=== PATIENT | male | born 1950 | race Caucasian/White ===

== ENCOUNTER 2018-03-18 07:37 | Inpatient (IN) ==
[2018-03-18] MEDS ORDERED: methylPREDNISolone SOD SUCC 125 MG/2 ML VIAL IV ONE (07:43)
[2018-03-18] MEDS ORDERED: IPRATROPIUM/ALBUTEROL 3 ML AMPUL.NEB NEB ONE (07:43)
[2018-03-18] MEDS ORDERED: methylPREDNISolone SOD SUCC 125 MG/2 ML VIAL ONE (07:44)
[2018-03-18] MEDS: IPRATROPIUM/ALBUTEROL 3 ML AMPUL.NEB NEB ONE ×2 (07:45→08:54)
[2018-03-18] MEDS ORDERED: LACTATED RINGERS 1,000 ML IV ONE (07:53)
[2018-03-18] MEDS ORDERED: ROCURONIUM 10 MG/ML ML IV ONE ×2 (08:03→15:59)
[2018-03-18] MEDS ORDERED: MIDAZOLAM 2 MG/2 ML VIAL IV ONE ×3 (08:03→09:14)
--- NOTE | 2018-03-18 08:07 | XRay Report ---
CLINICAL INFORMATION: Endotracheal tube placement - history of asthma COMPARISON: 03/31/2015 FINDINGS: Endotracheal tip is 4.5 cm above the ehsan. Heart size, mediastinum and pulmonary vessels are normal. Lung volumes are elevated compatible with known asthma. There are no infiltrates or effusions. IMPRESSION: Elevated lung volumes compatible with known asthma. No change from 2014. Endotracheal tip is 4.5 cm above the ehsan Interpreted and Authenticated by: Bertin Galvez 03/18/18
--- NOTE | 2018-03-18 08:15 | Emergency Department Note ---
General Adult HPI - General Chief complaint: Shortness of Breath/Dyspnea Stated complaint: Resp arrest Time Seen by Provider: 03/18/18 07:43 Mode of arrival: ambulatory - History of Present Illness HPI Narrative: This patient is an asthma patient who presented emergency room and near collapse. He required intubation immediately. His later said that he has been having increasing asthma symptoms over the last 2 weeks and has been mowing his grass and does have allergies which tend to trigger his asthma. No other symptoms according to the . - Related Data Previous Rx's Medication Instructions Recorded Albuterol Sulfate [Ventolin] 2 puff INH Q4-6HP PRN #1 inhaler 04/02/17 Allergies Allergy/AdvReac Type Severity Reaction Status Date / Time Penicillins AdvReac Verified 03/18/18 07:45 Review of Systems Limitations: ROS unobtainable due to patients medical condition Past Medical History - Past Medical History Medical history: Reports: asthma Surgical history ED: Reports: tonsillectomy - Social History smoking status: Never smoker Physical Exam Limitations: altered mental status General appearance: in distress Head: atraumatic, normocephalic Eye: Present: normal appearance ENT: normal exam Neck: Present: normal inspection Chest: Present: normal inspection Respiratory: Present: respiratory distress, other (decreased breath sounds throughout) Cardiovascular: Present: regular rate, normal rhythm, normal heart sounds Abdominal: Present: soft. Absent: distention, tenderness Neurological: Present: alert Psychiatric: Present: normal affect, normal mood Skin: Present: warm, dry, intact Course Vital Signs Pulse Rate 105 H 03/18/18 07:38 Respiratory Rate 0 L 03/18/18 07:38 Blood Pressure 178/81 03/18/18 07:38 Pulse Oximetry (%) 100 03/18/18 07:38 Temperature 94.7 F L 03/18/18 08:29 Pulse Rate 121 H 03/18/18 08:29 Respiratory Rate 20 03/18/18 08:29 Blood Pressure 111/83 03/18/18 08:28 Pulse Oximetry (%) 100 03/18/18 08:29 Procedures - Intubation Time out performed: No sedative: none Laryngoscope: fiber optic video scope ET Tube Size: 8 ET Tube Uncuffed: No Tube Placement Confirmation: visualized tube passing through cords, confirmation by capnometry Patient Tolerated Procedure: well, no complications Intubation Complications: none Medical Decision Making - MDM Narrative Medical decision making narrative: This patient has remained stable after intubation. His lactic acid was quite high so we did blood cultures and started antibiotics. He will be admitted to the ICU by Dr. Steele. - Lab Data Lab results reviewed: Yes I reviewed the patient's lab results. Result diagrams: 03/18/18 07:50 03/18/18 07:50 Lab Results 03/18/18 03/18/18 03/18/18 Range/Units 07:50 07:50 07:50 WBC 9.9 (4.5-11.0) K/mcL RBC 5.25 (4.50-5.90) M/mcL Hgb 15.5 (13.5-16.5) g/dL Hct 48.4 (41.0-55.0) % MCV 92.3 (80.0-100.0) fL MCH 29.6 (26.0-34.0) pg MCHC 32.1 (31.0-36.0) g/dL RDW 13.0 (11.5-14.5) % Plt Count 292 (140-440) K/mcL MPV 8.3 (7.4-10.4) fL Gran % 40.9 (38.0-78.0) % Lymph % (Auto) 41.9 (15.5-49.0) % Drew % (Auto) 7.2 (1.0-12.0) % Eos % (Auto) 9.2 H (0.0-7.0) % Baso % (Auto) 0.8 (0.0-2.0) % Gran # 4.1 (1.8-8.0) K/mcL Lymph # (Auto) 4.2 (1.5-4.8) K/mcL Drew # (Auto) 0.7 (0.1-0.9) K/mcL Eos # (Auto) 0.9 H (0.0-0.7) K/mcL Baso # (Auto) 0.1 (0.0-0.3) K/mcL VBG Lactic Acid (0.5-2.2) mmol/L Sodium 144 (133-145) mmol/L Potassium 4.7 (3.3-5.1) mmol/L Chloride 103 (96-108) mmol/L Carbon Dioxide 26 (22-30) mmol/L Anion Gap 15.0 (8-16) BUN 13 (8-23) mg/dl Creatinine 0.9 (0.7-1.2) mg/dl GFR Calculation 89 Glucose 124 H (70-105) mg/dL Calcium 9.3 (8.6-10.4) mg/dl Total Bilirubin 0.6 (0.0-1.0) mg/dL AST 21 (0-37) U/l ALT 16 (0-40) U/l Alkaline Phosphatase 73 (39-117) U/L Troponin T < 0.01 (0-0.03) ng/ml NT-Pro-B Natriuret Pep < 50.0 (0-125) pg/ml Total Protein 7.6 (5.9-8.4) gm/dL Albumin 4.6 (3.2-5.2) gm/dL Globulin 3.0 (2.2-3.7) gm/dL Albumin/Globulin Ratio 1.5 (1.0-2.3) 03/18/18 Range/Units 07:52 WBC (4.5-11.0) K/mcL RBC (4.50-5.90) M/mcL Hgb (13.5-16.5) g/dL Hct (41.0-55.0) % MCV (80.0-100.0) fL MCH (26.0-34.0) pg MCHC (31.0-36.0) g/dL RDW (11.5-14.5) % Plt Count (140-440) K/mcL MPV (7.4-10.4) fL Gran % (38.0-78.0) % Lymph % (Auto) (15.5-49.0) % Drew % (Auto) (1.0-12.0) % Eos % (Auto) (0.0-7.0) % Baso % (Auto) (0.0-2.0) % Gran # (1.8-8.0) K/mcL Lymph # (Auto) (1.5-4.8) K/mcL Drew # (Auto) (0.1-0.9) K/mcL Eos # (Auto) (0.0-0.7) K/mcL Baso # (Auto) (0.0-0.3) K/mcL VBG Lactic Acid 7.7 H* (0.5-2.2) mmol/L Sodium (133-145) mmol/L Potassium (3.3-5.1) mmol/L Chloride (96-108) mmol/L Carbon Dioxide (22-30) mmol/L Anion Gap (8-16) BUN (8-23) mg/dl Creatinine (0.7-1.2) mg/dl GFR Calculation Glucose (70-105) mg/dL Calcium (8.6-10.4) mg/dl Total Bilirubin (0.0-1.0) mg/dL AST (0-37) U/l ALT (0-40) U/l Alkaline Phosphatase (39-117) U/L Troponin T (0-0.03) ng/ml NT-Pro-B Natriuret Pep (0-125) pg/ml Total Protein (5.9-8.4) gm/dL Albumin (3.2-5.2) gm/dL Globulin (2.2-3.7) gm/dL Albumin/Globulin Ratio (1.0-2.3) - Radiology Data Radiology results reviewed: Yes I reviewed the patient's radiology results. Critical Care Time Critical Care Time: Yes Total Critical Care Time: 45 Disposition Pt seen by MANAGER LOCAL/PA only: No Clinical Impression: Asthma with exacerbation, Acute respiratory failure Disposition: Xfer As Inpt ([facility]) Condition: Critical Time of Disposition: 09:00
[2018-03-18 08:29] LABS: Basophils # (Auto) 0.1 K/mcL (0.0-0.3); Basophils % (Auto) 0.8 % (0.0-2.0); Eosinophils # (Auto) 0.9 K/mcL (0.0-0.7); Eosinophils % (Auto) 9.2 % (0.0-7.0); Granulocytes % (Auto) 40.9 % (38.0-78.0); Lymphocytes # (Auto) 4.2 K/mcL (1.5-4.8); Lymphocytes % (Auto) 41.9 % (15.5-49.0); Mean Cell Volume 92.3 fL (80.0-100.0); Mean Corpuscular HGB Conc 32.1 g/dL (31.0-36.0); Mean Corpuscular Hemoglobin 29.6 pg (26.0-34.0); Monocytes # (Auto) 0.7 K/mcL (0.1-0.9); Monocytes % (Auto) 7.2 % (1.0-12.0); Platelet Count 292 K/mcL (140-440); RBC 5.25 M/mcL (4.50-5.90)
[2018-03-18] MEDS ORDERED: PROPOFOL 1,000 MG in PREMIX 1 BAG IV SCH (08:45)
[2018-03-18 08:52] LABS: ALT/SGPT 16 U/l (0-40); Albumin 4.6 gm/dL (3.2-5.2); Albumin/Globulin Ratio 1.5 (1.0-2.3); Alkaline Phosphatase 73 U/L (39-117); Blood Urea Nitrogen 13 mg/dl (8-23); proBNP < 50.0 pg/ml (0-125)
[2018-03-18] MEDS ORDERED: VANCOMYCIN 1,000 MG in 0.9 % SODIUM CHLORIDE 250 ML IV ONE (08:59)
[2018-03-18] MEDS ORDERED: LEVOFLOXACIN 750 MG/150 ML BAG IV ONE (08:59)
[2018-03-18] MEDS ORDERED: POTASSIUM CHLORIDE 20 MEQ PACKET PO PRN (10:03)
[2018-03-18] MEDS ORDERED: traZODone HCL 50 MG TABLET PO PRN (10:03)
[2018-03-18] MEDS ORDERED: ONDANSETRON 4 MG/2 ML VIAL IV PRN (10:03)
[2018-03-18] MEDS ORDERED: HEPARIN/NS 500 ML IV SCH (10:03)
[2018-03-18] MEDS ORDERED: ACETAMINOPHEN 1,000 MG/100 ML BOTTLE IV PRN (10:03)
[2018-03-18] MEDS ORDERED: guaiFENesin/CODEINE 10 ML UDC PO PRN (10:03)
[2018-03-18] MEDS ORDERED: MAGNESIUM SULFATE 2 GM/50 ML BAG IV PRN (10:03)
[2018-03-18] MEDS ORDERED: POTASSIUM CHLORIDE 40 MEQ in DEXTROSE 5% IN WATER 500 ML IV PRN (10:03)
[2018-03-18] MEDS ORDERED: cefTRIAXone 2 GM in DEXTROSE 5% IN WATER 50 ML IV SCH (10:03)
[2018-03-18] MEDS ORDERED: ACETAMINOPHEN 325 MG TABLET PO PRN (10:03)
--- NOTE | 2018-03-18 10:13 | Internal Med History&Physical ---
Medical - H&P: [facility] Patient information: Note initiated : 03/18/18 at 10:09 am Service Date, if different from initiated Date: [] Patient: Eleazar Purvis a 67 y/o M admitted on 03/18/18 for Resp arrest. Chief Complaint: [] Chief complaint: shortness of breath History of present illness: Mr. Purvis is a 67 year old M with known history of asthma who presents to the ER in severe respiratory distress. Patient has had symptoms that evolved over the last 2 weeks with progressive shortness of breath that has not improved despite using rescue inhalers. Patient also has been mowing lawn 2 days ago that worsened his shortness of breath. This morning he could barely breathe and subsequently came to the ER. During initial evaluation patient became bradycardic with respiratory arrest. he was promptly started on mechanical ventilation. Initial blood gas 7.02/79 CO2. Hospitalist service was consulted after patient was stabilized. Initial venous lactate was 7.2. Patient was received in ICU on mechanical ventilation. ICU sedation on propofol , fentanyl is being admitted. vent setting before meals tidal volume 450/16/ 30FiO2/PEEP 5 he was obtained from review of medical records and ER physician. On discussions with she is able to endorse history as above. She denies sick contacts. She denies recent exposure to smoke or active smoking. Patient and his will follow-up with her primary care physician and has been trying homeopathic medicine for seasonal allergy disorder. Patient has had intermittent episodes of asthma in the past requiring ER visit and was never hospitalized. So far he has been well controlled on his rescue inhalers. Patient did not have any fever diarrhea and weight loss in the last few weeks. Review of systems 10 point review systems was discussed with as patient is on mechanical ventilation and is negative except for ones discussed above Medical - H&P: PMH Medical history: seasonal allergy disorder Reactive airway disease Pertinent family history: none available Social history: and lives with his in [place] No history of smoking alcoholism Functional capacity: independent ambulation Smoking status: Never smoker Have you smoked in the last 12 months: No Drug use: none Alcohol use: none Medical - H&P: Meds Home Medications Medication Instructions Recorded Confirmed Type Albuterol Sulfate [Ventolin] 2 puff INH Q4-6HP PRN #1 inhaler 04/02/17 03/18/18 Rx Allergies Allergy/AdvReac Type Severity Reaction Status Date / Time Penicillins AdvReac Verified 03/18/18 07:45 Medical - H&P: Exam - Constitutional Vitals: Temp Pulse Resp BP Pulse Ox 95.4 F L 91 H 18 103/60 100 03/18/18 09:55 03/18/18 09:55 03/18/18 09:55 03/18/18 09:55 03/18/18 09:55 General appearance: average body habitus Exam: On mechanical ventilation Sedated on propofol Pupils symmetric ET tube in place oral cavity dry No ear or nose discharge Minimal rhonchi s1 and S2 tachycardia abdomen soft lower extremity no cyanosis clubbing edemaOr joint swelling skin no suspicious lesion Psych on mechanical ventilation neuro: Not performed Medical - H&P: Reslt - Labs CBC & Chem 7: 03/18/18 07:50 03/18/18 07:50 Labs: Short CBC 03/18/18 Range/Units 07:50 WBC 9.9 (4.5-11.0) K/mcL Hgb 15.5 (13.5-16.5) g/dL Hct 48.4 (41.0-55.0) % Plt Count 292 (140-440) K/mcL BMP 03/18/18 07:50 Sodium 144 Potassium 4.7 Chloride 103 Carbon Dioxide 26 BUN 13 Creatinine 0.9 Glucose 124 H Calcium 9.3 Cardiac Enzymes 03/18/18 Range/Units 07:50 Troponin T < 0.01 (0-0.03) ng/ml Liver Function 03/18/18 Range/Units 07:50 Total Bilirubin 0.6 (0.0-1.0) mg/dL AST 21 (0-37) U/l ALT 16 (0-40) U/l Alkaline Phosphatase 73 (39-117) U/L Albumin 4.6 (3.2-5.2) gm/dL Medical - H&P: A/P (1) Status asthmaticus, allergic Current visit: Yes Status: Acute * Status asthmaticus, ABG 7.. On mechanical ventilation. High-dose steroids/continues bronchodilators/racemic epinephrine/magnesium as needed * Hypercapnic respiratory failure-on mechanical ventilation. * Mechanical ventilation-managed per protocol - continue sedation on FENTANYL/ propofol. * Prophylaxis heparin * full code plan * mechanical ventilation per protocol * Status asthmaticus management per protocol Critical care time spent over 35 minutes on intubation blood gas imaging, Vent management and drips titration.
[2018-03-18] MEDS ORDERED: 0.9 % SODIUM CHLORIDE 1,000 ML IV ONE ×2 (10:30→11:30)
--- NOTE | 2018-03-18 10:36 | XRay Report ---
CLINICAL INFORMATION: NG placement COMPARISON: None. FINDINGS: NG tip overlies the gastric body. Only upper one half half of the abdomen is included on film. Stool gas pattern is grossly normal. No free air. IMPRESSION: NG tube in satisfactory position. No acute disease evident Interpreted and Authenticated by: Bertin Galvez 03/18/18
[2018-03-18] MEDS: PROPOFOL 1,000 MG in PREMIX 1 BAG IV SCH ×2 (10:50→17:33)
[2018-03-18] MEDS: IPRATROPIUM/ALBUTEROL 3 ML AMPUL.NEB NEB SCH ×4 (11:14→23:08)
[2018-03-18] MEDS ORDERED: NOREPINEPHRINE BITARTRATE 8 MG in 0.9 % SODIUM CHLORIDE 242 ML IV SCH (11:15)
[2018-03-18] MEDS: NOREPINEPHRINE BITARTRATE 16 MG in 0.9 % SODIUM CHLORIDE 234 ML IV SCH (11:30)
[2018-03-18] MEDS: 0.9 % SODIUM CHLORIDE 250 ML IV SCH ×2 (11:51→23:44)
[2018-03-18] MEDS: 0.9 % SODIUM CHLORIDE 1,000 ML IV SCH (11:51)
[2018-03-18] MEDS: fentaNYL 2,500 MCG in 0.9 % SODIUM CHLORIDE 200 ML IV SCH (12:00)
[2018-03-18] MEDS: methylPREDNISolone SOD SUCC 125 MG/2 ML VIAL IV SCH ×3 (12:28→23:46)
[2018-03-18] MEDS: 0.9 % SODIUM CHLORIDE 10 ML SYRINGE IV SCH ×2 (14:18→23:47)
[2018-03-18] MEDS ORDERED: MIDAZOLAM 5 MG/5 ML VIAL IV ONE (15:59)
[2018-03-18] MEDS: BUDESONIDE 0.5 MG/2 ML AMPUL.NEB NEB SCH (20:51)
[2018-03-18] MEDS ORDERED: SENNOSIDES/DOCUSATE SODIUM 1 TAB TABLET PO SCH (21:00)
[2018-03-18] MEDS: CHLORHEXIDINE GLUCONATE 1 ML ORAL.SOL SWABMOUTH SCH (21:04)
[2018-03-18] MEDS: HEPARIN 5,000 UNIT/ML VIAL SQ SCH (21:04)
[2018-03-18] MEDS: DOCUSATE SODIUM 100 MG CAPSULE PO SCH (21:05)
[2018-03-19] MEDS: IPRATROPIUM/ALBUTEROL 3 ML AMPUL.NEB NEB SCH ×6 (02:46→23:02)
[2018-03-19] MEDS: PROPOFOL 1,000 MG in PREMIX 1 BAG IV SCH ×2 (03:31→11:05)
[2018-03-19] MEDS: methylPREDNISolone SOD SUCC 125 MG/2 ML VIAL IV SCH ×3 (05:36→17:38)
[2018-03-19] MEDS: 0.9 % SODIUM CHLORIDE 10 ML SYRINGE IV SCH ×3 (05:36→22:00)
[2018-03-19 06:19] LABS: Mean Cell Volume 92.1 fL (80.0-100.0); Mean Corpuscular Hemoglobin 30.4 pg (26.0-34.0); Platelet Count 254 K/mcL (140-440); RBC 4.32 M/mcL (4.50-5.90)
--- NOTE | 2018-03-19 06:35 | XRay Report ---
CLINICAL INFORMATION: Dyspnea on mechanical ventilation COMPARISON: 03/23/2018 FINDINGS: Endotracheal tip is now 3.5 cm above the ehsan. NG tube in stable satisfactory position. Heart size, mediastinum and pulmonary vessels are normal. Lungs are clear. Lung volumes are mildly elevated. No effusions IMPRESSION: Elevated lung volumes suggestive of asthma or chronic bronchitis. No infiltrate. Endotracheal tube in satisfactory position. Interpreted and Authenticated by: Bertin Galvez 03/19/18
[2018-03-19 07:28] LABS: ALT/SGPT 15 U/l (0-40); Albumin 3.7 gm/dL (3.2-5.2); Albumin/Globulin Ratio 1.6 (1.0-2.3); Alkaline Phosphatase 60 U/L (39-117); Bilirubin,Direct < 0.2 mg/dL (0.0-0.3); Blood Urea Nitrogen 13 mg/dl (8-23); Gamma Glutamyl Transpeptidase 16 U/L (8-61); Uric Acid 3.8 mg/dL (2.5-8.0)
[2018-03-19] MEDS: BUDESONIDE 0.5 MG/2 ML AMPUL.NEB NEB SCH ×2 (07:44→19:09)
[2018-03-19] MEDS: 0.9 % SODIUM CHLORIDE 1,000 ML IV SCH (07:46)
--- NOTE | 2018-03-19 08:17 | Internal Med Progress Note ---
Medical - PN: Subj Patient information: Note initiated : 03/19/18 at 8:15 am Service Date, if different from initiated Date: [] Patient: Eleazar Purvis a 67 y/o M admitted on 03/18/18 for Resp arrest. Chief Complaint: [] Interval history: Mr. Purvis is a 67 year old M with known history of asthma who presents to the ER in severe respiratory distress. Patient has had symptoms that evolved over the last 2 weeks with progressive shortness of breath that has not improved despite using rescue inhalers. Patient also has been mowing lawn 2 days ago that worsened his shortness of breath. This morning he could barely breathe and subsequently came to the ER. During initial evaluation patient became bradycardic with respiratory arrest. he was promptly started on mechanical ventilation. Initial blood gas 7.02/79 CO2. Hospitalist service was consulted after patient was stabilized. Initial venous lactate was 7.2. Patient was received in ICU on mechanical ventilation. ICU sedation on propofol , fentanyl is being admitted. vent setting before meals tidal volume 450/16/ 30FiO2/PEEP 5 he was obtained from review of medical records and ER physician. On discussions with she is able to endorse history as above. She denies sick contacts. She denies recent exposure to smoke or active smoking. Patient and his will follow-up with her primary care physician and has been trying homeopathic medicine for seasonal allergy disorder. Patient has had intermittent episodes of asthma in the past requiring ER visit and was never hospitalized. So far he has been well controlled on his rescue inhalers. 03/19-patient doing remarkably better. ABG 7.4/36 PCO2. hypovolemic shock resolved, off vasopressors with map at goal. rapid shallow breathing index favorable. at bedside. Patient ready for extubation. vasopressors/ propofol and fentanyl discontinued. Patient subsequently extubated to high flow oxygen. No untoward events during extubation procedure. no overnight fever or chills. On high-dose steroids. Continue monitoring and lower steroid dose. Continue breathing treatments and physical therapy. Anticipate discharge in 24 hours oral steroids and bronchodilators. - Constitutional Vitals: Vital Signs Temp Pulse Resp BP Pulse Ox 98.4 F 73 21 128/62 100 03/19/18 08:01 03/19/18 08:01 03/19/18 08:01 03/19/18 08:01 03/19/18 08:01 Period Temp Pulse Resp BP Sys/Myles Pulse Ox Last 24 Hr 94.4 F-99.7 F 48-135 9-24 59-158/39-98 92-100 Intake and Output 03/18/18 03/19/18 03/19/18 21:59 05:59 13:59 Intake Total 2105 / 2105 297 / 297 1195 / 1195 Output Total 535 / 535 397 / 397 140 / 140 Balance 1570 / 1570 -100 / -100 1055 / 1055 Weight 129 lb Intake & Output: Intake & Output 03/18/18 03/19/18 03/19/18 21:59 05:59 13:59 Intake Total 2105 / 2105 297 / 297 1195 / 1195 Output Total 535 / 535 397 / 397 140 / 140 Balance 1570 / 1570 -100 / -100 1055 / 1055 Weight 129 lb Intake: IV 2105 / 2105 297 / 297 1195 / 1195 Sodium Chloride 0.9% 1,000 ml @ 996 / 996 50 mls/hr IV .Q20H SHARONDA Rx#: [id number] Sodium Chloride 0.9% 250 ml @ 237 / 237 20 mls/hr IV .[id number] SHARONDA Rx#: [id number] Levophed 16 mg In Sodium 84 / 84 Chloride 0.9% 234 ml @ 10 MCG/ MIN 9.37 mls/hr IV Q24H SHARONDA Rx# :[id number] Diprivan 1,000 mg In Premix 1 83 / 83 60 / 60 45 / 45 Bag @ 5 MCG/KG/MIN 2.04 mls/hr IV .Q24H SHARONDA Rx#:[id number] fentaNYL 2,500 MCG In Sodium 22 / 22 70 / 70 Chloride 0.9% 200 ml @ 25 MCG/ HR 2.5 mls/hr IV Q24H SHARONDA Rx#: [id number] Output: Gastric Drainage 25 / 25 Right Nare NG/OG 25 / 25 Urine Catheter Amount 535 / 535 372 / 372 140 / 140 General appearance: no acute distress Exam: alert oriented nonlabored breathing Nondistended abdomen No telemetry events Good urine output Medical - PN: Obj Da - Labs CBC & Chem 7: 03/19/18 04:00 03/19/18 04:00 Labs: Abnormal Lab Results 03/19/18 03/19/18 03/18/18 04:00 04:00 07:52 RBC 4.32 L Hgb 13.1 L Hct 39.8 L Eos % (Auto) Eos # (Auto) VBG Lactic Acid 7.7 H* Carbon Dioxide 19 L Creatinine 0.6 L Glucose 138 H Calcium 8.0 L 03/18/18 03/18/18 07:50 07:50 RBC Hgb Hct Eos % (Auto) 9.2 H Eos # (Auto) 0.9 H VBG Lactic Acid Carbon Dioxide Creatinine Glucose 124 H Calcium Meds: Medications Acetaminophen (Tylenol) 650 mg PO Q4-6HP PRN PRN Reason: PAIN/FEVER > 101 Albuterol/Ipratropium (Duoneb) 3 ml NEB Q4HRT [facility] Last Admin: 03/19/18 07:44 Dose: 3 ml Budesonide (Pulmicort) 0.5 mg NEB Q12 [facility] Last Admin: 03/19/18 07:44 Dose: 0.5 mg Chlorhexidine Gluconate (Peridex) 15 ml SWABMOUTH BID [facility] Last Admin: 03/18/18 21:04 Dose: 15 ml Docusate Sodium (Colace) 100 mg PO BID [facility] Last Admin: 03/18/18 21:05 Dose: Not Given Guaifenesin/Codeine Phosphate (Robitussin Ac) 10 ml PO Q4HP PRN PRN Reason: Cough Heparin Sodium (Porcine) (Heparin) 5,000 unit SQ Q12 [facility] Last Admin: 03/18/18 21:04 Dose: 5,000 unit Fentanyl 2,500 mcg/ Sodium (Chloride) 250 mls @ 2.5 mls/hr IV Q24H SHARONDA; 25 MCG/ HR PRN Reason: Protocol Last Titration: 03/19/18 07:20 Dose: 0 mcg/hr, 0 mls/hr Heparin Sodium/Sodium Chloride (Heparin/Ns) 500 mls @ 0 mls/hr IV .Q0M SHARONDA; KVO PRN Reason: Protocol Potassium Chloride 40 meq/ (Dextrose) 520 mls @ 130 mls/hr IV UD PRN PRN Reason: K+ = or < 3.5 Magnesium Sulfate (Magnesium Sulfate) 2 gm in 50 mls @ 50 mls/hr IV UD PRN PRN Reason: MG = or < 1.7 Sodium Chloride (Sodium Chloride 0.9%) 1,000 mls @ 50 mls/hr IV .Q20H SHARONDA Stop: 03/20/18 22:02 Last Admin: 03/19/18 07:46 Dose: 50 mls/hr Acetaminophen (Ofirmev) 1,000 mg in 100 mls @ 200 mls/hr IV Q6HP PRN PRN Reason: PAIN/FEVER > 101 Propofol 1,000 mg/ Premix 100 mls @ 2.04 mls/hr IV .Q24H SHARONDA; 5 MCG/KG/MIN PRN Reason: Protocol Last Titration: 03/19/18 07:20 Dose: 0 mcg/kg/min, 0 mls/hr Sodium Chloride (Sodium Chloride 0.9%) 250 mls @ 20 mls/hr IV .[id number] [facility] Last Admin: 03/18/18 23:44 Dose: 15 mls/hr Norepinephrine Bitartrate 16 (mg/ Sodium Chloride) 250 mls @ 9.37 mls/hr IV Q24H SHARONDA; 10 MCG/MIN PRN Reason: Protocol Last Titration: 03/19/18 07:20 Dose: 0 mcg/min, 0 mls/hr Iron Carb/Multivit/Circuit Court Clerk/Folic Acid (Multivitamin W/Minerals) 1 tab PO DAILY [facility] Methylprednisolone Sodium Succinate (Solu-Medrol) 125 mg IV Q6 [facility] Last Admin: 03/19/18 05:36 Dose: 125 mg Ondansetron HCl (Zofran) 4 mg IV Q4-6HP PRN PRN Reason: Nausea And Vomiting Potassium Chloride (Klor-Con) 40 meq PO DAILYP PRN PRN Reason: K+ < 3.5 Senna/Docusate Sodium (Senna Plus Tablet) 1 tab PO HS [facility] Last Admin: 03/18/18 21:05 Dose: Not Given Sodium Chloride (Saline Flush) 10 ml IV Q8 [facility] Last Admin: 03/19/18 05:36 Dose: Not Given Trazodone HCl (Desyrel) 50 mg PO HSP PRN PRN Reason: Insomnia Medical - PN: A/P - Time Spent With Patient Total time spent is greater than 50% in coordination of care (as documented) at patient's floor/unit and/or counseling patient: 25 - 35 minutes (critical care time) (1) Status asthmaticus, allergic Status: Acute Assessment and plan: * Status asthmaticus, ABG 7.02/79. ABG improved to 7.4/36. Extubation parameters favorable. continue IV steroid and transition to oral steroids on discharge. * Hypercapnic respiratory failure- clinically resolved. Blood gases /pH normalized * hypovolemic shock-clinically resolved. Off pressors. Status post ferrous crystalloids bolus * Mechanical ventilation-extubated today * Prophylaxis heparin * full code plan * continue IV steroids and bronchodilators * Extubate * discontinue propofol fentanyl and pressors Current Visit: Yes Medical - PN: Qual - VTE Deep Vein Thrombosis/Pulmonary Embolism Present on Admission: No
[2018-03-19 08:18] LABS: Band Neutrophils % 2 % (0-10); Lymphocytes % 13 % (15-49); Platelet Estimate NORMAL (NORMAL); RBC Morphology NORMAL (NORMAL); Segmented Neutrophils % 85 % (38-78)
[2018-03-19] MEDS ORDERED: MULTIVIT,THER IRON,CA,FA & MIN 1 TABLET PO SCH (09:00)
[2018-03-19] MEDS: HEPARIN 5,000 UNIT/ML VIAL SQ SCH ×2 (10:05→21:00)
[2018-03-19] MEDS: DOCUSATE SODIUM 100 MG CAPSULE PO SCH ×2 (10:06→21:00)
[2018-03-19] MEDS: CHLORHEXIDINE GLUCONATE 1 ML ORAL.SOL SWABMOUTH SCH (10:06)
[2018-03-19] MEDS: fentaNYL 2,500 MCG in 0.9 % SODIUM CHLORIDE 200 ML IV SCH (10:07)
[2018-03-19] MEDS: NOREPINEPHRINE BITARTRATE 16 MG in 0.9 % SODIUM CHLORIDE 234 ML IV SCH (12:26)
[2018-03-19] MEDS ORDERED: NOREPINEPHRINE BITARTRATE 16 MG in 0.9 % SODIUM CHLORIDE 234 ML IV SCH ×2 (15:45→16:14)
[2018-03-19] MEDS ORDERED: ACETAMINOPHEN 900 MG/90 ML BOTTLE IV PRN (16:14)
[2018-03-19] MEDS ORDERED: POTASSIUM CHLORIDE 40 MEQ in DEXTROSE 5% IN WATER 500 ML IV PRN (16:14)
[2018-03-19] MEDS ORDERED: ACETAMINOPHEN 325 MG TABLET PO PRN (16:14)
[2018-03-19] MEDS ORDERED: POTASSIUM CHLORIDE 20 MEQ PACKET PO PRN (16:14)
[2018-03-19] MEDS ORDERED: HEPARIN/NS 500 ML IV SCH (16:14)
[2018-03-19] MEDS ORDERED: MAGNESIUM SULFATE 2 GM/50 ML BAG IV PRN (16:14)
[2018-03-19] MEDS ORDERED: traZODone HCL 50 MG TABLET PO PRN (16:14)
[2018-03-19] MEDS ORDERED: ONDANSETRON 4 MG/2 ML VIAL IV PRN (16:14)
[2018-03-19] MEDS ORDERED: guaiFENesin/CODEINE 10 ML UDC PO PRN (16:14)
[2018-03-19] MEDS ORDERED: methylPREDNISolone SOD SUCC 125 MG/2 ML VIAL IV SCH (18:00)
[2018-03-19] MEDS ORDERED: SENNOSIDES/DOCUSATE SODIUM 1 TAB TABLET PO SCH (21:00)
[2018-03-20] MEDS: methylPREDNISolone SOD SUCC 125 MG/2 ML VIAL IV SCH ×3 (03:05→11:11)
[2018-03-20] MEDS: 0.9 % SODIUM CHLORIDE 1,000 ML IV SCH ×2 (03:09→11:11)
[2018-03-20] MEDS: IPRATROPIUM/ALBUTEROL 3 ML AMPUL.NEB NEB SCH ×3 (03:36→11:05)
[2018-03-20 05:22] LABS: Platelet Count 190 K/mcL (140-440); RBC 3.66 M/mcL (4.50-5.90); Red Cell Distribution Width 13.2 % (11.5-14.5)
[2018-03-20] MEDS: 0.9 % SODIUM CHLORIDE 10 ML SYRINGE IV SCH (05:27)
[2018-03-20 05:46] LABS: ALT/SGPT 19 U/l (0-40); Albumin 3.5 gm/dL (3.2-5.2); Albumin/Globulin Ratio 1.8 (1.0-2.3); Alkaline Phosphatase 48 U/L (39-117); Bilirubin,Direct < 0.2 mg/dL (0.0-0.3); Blood Urea Nitrogen 20 mg/dl (8-23); Gamma Glutamyl Transpeptidase 23 U/L (8-61); Uric Acid 3.8 mg/dL (2.5-8.0)
[2018-03-20 06:34] LABS: Lymphocytes % 13 % (15-49); Monocytes % (Manual) 8 % (1-12); Platelet Estimate NORMAL (NORMAL); RBC Morphology NORMAL (NORMAL); Segmented Neutrophils % 79 % (38-78)
[2018-03-20] MEDS: HEPARIN 5,000 UNIT/ML VIAL SQ SCH (08:45)
[2018-03-20] MEDS: DOCUSATE SODIUM 100 MG CAPSULE PO SCH (08:45)
[2018-03-20] MEDS: BUDESONIDE 0.5 MG/2 ML AMPUL.NEB NEB SCH (08:46)
[2018-03-20] MEDS ORDERED: MULTIVIT,THER IRON,CA,FA & MIN 1 TABLET PO SCH (09:00)
--- NOTE | 2018-03-20 09:06 | XRay Report ---
CLINICAL INFORMATION: Hypoxia patient now extubated COMPARISON: 03/19/2018 FINDINGS: Endotracheal tube is now out. There is mild concentric narrowing of the subglottic trachea could indicate stenosis or edema following tube removal. Heart size, mediastinum and pulmonary vessels are normal. Lungs are clear. No effusions. IMPRESSION: No acute cardiopulmonary disease. Mild concentric narrowing of the proximal trachea Interpreted and Authenticated by: Bertin Galvez 03/20/18
--- NOTE | 2018-03-20 10:20 | Discharge Summary ---
Medical - DS: Prov Patient information: Note initiated : 03/20/18 at 10:15 am Service Date, if different from initiated Date: [] Patient: Eleazar Purvis 67 y/o M admitted on 03/18/18 for Resp Arrest/Asthma w/ Exacerbation, Resp Failure. Chief Complaint: [] Date of admission: 03/18/18 09:43 Discharge date: 03/20/18 Admitting clinician: Kenny Ball Consults: 03/18/18 08:11 Consult to Physician [CONS] Stat Comment: Consulting Provider: Kenny Ball Reason For Exam: Physician to Consult Discharging clinician: Richard Garcia Medical - DS: Meds - Discharge Medications Prescriptions: predniSONE [Prednisone] 40 mg PO QAC #8 tab Active and Home Medications: Home Medications Albuterol Sulfate [Ventolin] 2 puff INH Q4-6HP PRN #1 inhaler 04/02/17 [Rx Confirmed 03/18/18 Last Taken 03/18/18 06:00] Medical - DS: Hosp Hospital course: Mr. Purvis is a 67 year old M with known history of asthma who presented to the ER in severe respiratory distress. Patient has had symptoms that evolved over the last 2 weeks with progressive shortness of breath that has not improved despite using rescue inhalers. Patient also has been mowing lawn 2 days ago that worsened his shortness of breath. This morning he could barely breathe and subsequently came to the ER. During initial evaluation patient became bradycardic with respiratory arrest. he was promptly started on mechanical ventilation. Initial blood gas 7.02/79 CO2. Hospitalist service was consulted after patient was stabilized. Initial venous lactate was 7.2. Patient was admitted to ICU on mechanical ventilation. He was treated with steroids and nebulizers, he responded to treatment well and was extubated on the (next day). He was monitored for 24 hrs after extubation during which time he did well, he had no wheezing, and was able to ambulate well. He is tolerating po diet well and able to speak full sentences. The patient will be discharged home with po steroids and continued as needed inhalters. He does not have a PCP . He is willing to follow up with pulmonary at discharge. Will refer him to our pulmonary clinic for management of his asthma. . Discharge diagnosis: Status Asthmaticus - Time Spent with Patient Total time spent providing and/or coordinating discharge services: Less than 30 minutes Medical - DS: Exam - Constitutional Vitals: Vital Signs Temp Pulse Pulse Resp BP Pulse Ox 03/20/18 07:52 98.5 F 16 119/61 96 03/20/18 06:58 69 12 03/20/18 03:41 98.9 F 16 101/46 03/20/18 00:01 98.5 F 16 105/55 98 03/19/18 23:57 97/43 03/19/18 23:55 101/44 03/19/18 23:54 62 95/40 98 03/19/18 23:03 51 L 12 03/19/18 20:00 99.2 F H 16 102/50 100 03/19/18 19:17 58 L 99 03/19/18 19:10 56 L 8 L 03/19/18 16:06 99 F 18 93/50 99 03/19/18 15:13 62 8 L 03/19/18 15:00 68 18 92/55 93 03/19/18 14:18 58 L 17 105/56 97 03/19/18 13:00 62 13 106/48 99 03/19/18 12:48 18 99 03/19/18 12:38 98.8 F 67 15 94/50 99 03/19/18 12:30 59 L 13 97 03/19/18 11:38 66 14 03/19/18 10:50 50 L 18 99/54 100 Intake and Output 03/19/18 03/20/18 03/20/18 21:59 05:59 13:59 Intake Total 680 / 680 1869 / 1869 Output Total 465 / 465 300 / 300 Balance 215 / 215 1569 / 1569 Intake: IV 969 / 969 Oral 680 / 680 900 / 900 Output: Gastric Drainage 240 / 240 Right Nare NG/OG 240 / 240 Void Amount 225 / 225 300 / 300 Other: Meal Dinner Percent of Meal Consumed 100% # Voids 1 Weight 133 lb 8 oz Additional comments: Constitutional; Afebrile, cooperative, alert, not in distress. Eyes- No icterus, , No periorbital swelling Ears- Ext ear normal, hearing normal to conversation. Neck- Midline trachea, supple Respiratory system: Air Entry equal on both sides, No crackles or wheezing, no rhonchi. CVS- Rate rhythm regular, S1,S2 heard, no gallop, no rub. Abdomen- Soft nontender abdomen, no organomegaly, no tenderness, no guarding or rigidity, [employer]ATIONS [employer]IST- AOOx3, moving all extremities, no gross focal deficit noted. Medical - DS: Data Labs on day of discharge: Labs from last 24 hours 03/20/18 03/20/18 03:38 03:38 WBC 8.9 RBC 3.66 L Hgb 11.0 L Hct 33.3 L MCV 91.0 MCH 30.0 MCHC 33.0 RDW 13.2 Plt Count 190 MPV 8.1 Total Counted 100 Seg Neutrophils % 79 H Band Neutrophils % Not Reportable Lymphocytes % 13 L Monocytes % (Manual) 8 Platelet Estimate Normal RBC Morphology Normal Sodium 135 Potassium 4.6 Chloride 102 Carbon Dioxide 24 Anion Gap 9.0 BUN 20 Creatinine 0.6 L GFR Calculation 105 Glucose 129 H Uric Acid 3.8 Calcium 8.2 L Phosphorus 3.3 Magnesium 2.0 Total Bilirubin 0.5 Direct Bilirubin < 0.2 GGT 23 AST 29 ALT 19 Alkaline Phosphatase 48 Lactate Dehydrogenase 143 Total Protein 5.5 L Albumin 3.5 Globulin 2.0 L Albumin/Globulin Ratio 1.8 Triglycerides 74 Preliminary micro results at discharge 03/18/18 11:36 Sputum Culture - Preliminary Sputum - Aspirate Medical - DS: A/P - Patient/Caregiver Discharge Instructions Activity: increase activity as tolerated Diet: Regular Diet Additional Instructions: Take prednisone 20 mg pill, 2 pills once a day with food. Total doses 40 mg. Take this for 4 days. Use your albuterol inhaler every 4 hours as needed for shortness of breath Go to the emergency room if you notice that his shortness of breath is getting worse, you have chest pain fever or any other acute concerning symptom. Follow-up with pulmonary in 1-[address] Pollard - Follow up Plan Follow up with: Garrison Pollard MD [Physician] - Disposition: Home, Self-Care Prognosis: Fair Rehab Potential: Fair I certify that the patient requires SNF services: No Overall status at discharge: patient is back to baseline Medical - DS: Qual - VTE Deep Vein Thrombosis/Pulmonary Embolism Present on Admission: No
== END 2018-03-20 12:55 | disposition home or self-care (01) | DRG 208 ==
LOC: ED 07:37 → ICU 09:43
PROVIDERS: ADMIT Internal Medicine; ATTEND Internal Medicine